=== PATIENT | male | born 1965 | race Caucasian/White ===

== ENCOUNTER 2016-10-27 21:33 | Inpatient (IN) | payer BC, OTHER ==
--- NOTE | 2016-10-27 21:50 | HP ---
[id number] Restless Observation: 3= Extraneous Movement Pupil Size: 1= Pupils >than Normal Bone or Joint Aches: 1= Mild Discomfort Runny Nose/ Eye Tearin= Runny Nose/Eyes GI Upset > 30mins: 1= Stomach Cramp Tremor Observation: 2= Slight Tremor Visible Yawning Observation: 1= 1-2x During Session Anxiety or Irritability: 2=Irritable/Anxious Goose Flesh Skin: 0=Smooth Skin COWS Score: 15 CIWA Score - CIWA Score Nausea/Vomitin Muscle Tremors: 3 Anxiety: 3 Agitation: 3 Paroxysmal Sweats: 2 Orientation: 1-Uncertain about Date Tacttile Disturbances: 0-None Auditory Disturbances: 0-None Visual Disturbances: 0-None Headache: 1-Very Mild CIWA-Ar Total Score: 15 Admission ROS S - HPI Chief Complaint: WITHDRAWAL SYMPTOMS Allergies/Adverse Reactions: Allergies Allergy/AdvReac Type Severity Reaction Status Date / Time shellfish derived AdvReac Verified 10/27/16 21:46 History of Present Illness: 51 Y.O. MAN WITH AN EXTENSIVE HISTORY OF DRUG AND ALCOHOL DEPENDENCE IS SEEKING DETOX. HE WAS PREVIOUSLY HERE IN 2013. HE STATES HE DOES NOT HAVE A SIGNIFICANT PERIOD OF SOBRIETY. Exam Limitations: No Limitations - Ebola screening Have you traveled outside of the country in the last 21 days: No Have you had contact with anyone from an Ebola affected area: No Do you have a fever: No - Review of Systems Constitutional: No Symptoms Reported EENT: reports: Tearing Respiratory: reports: Wheezing Cardiac: reports: No Symptoms Reported GI: reports: No Symptoms Reported : reports: No Symptoms Reported Musculoskeletal: reports: No Symptoms Reported Integumentary: reports: Other (TRACK ORTIZ) Neuro: reports: Tremors Endocrine: reports: No Symptoms Reported Hematology: reports: No Symptoms Reported Psychiatric: reports: Mood/Affect Appropiate, Orientated x3 Other Systems: Reviewed and Negative Patient History - Patient Medical History Hx Anemia: No Hx Asthma: Yes Hx Chronic Obstructive Pulmonary Disease (COPD): No Hx Cancer: No Hx Cardiac Disorders: No Hx Congestive Heart Failure: No Hx Hypertension: No Hx Hypercholesterolemia: No Hx Pacemaker: No HX Cerebrovascular Accident: No Hx Seizures: No Hx Dementia: No Hx Diabetes: No Hx Gastrointestinal Disorders: Yes (GERD) Hx Liver Disease: No Hx Genitourinary Disorders: No Hx Sexually Transmitted Disorders: No Hx Renal Disease (ESRD): No Hx Thyroid Disease: No Hx Human Immunodeficiency Virus (HIV): No (NEG) Hx Hepatitis C: Yes (UNTREATED ) Hx Depression: No Hx Suicide Attempt: No Hx Bipolar Disorder: No Hx Schizophrenia: No - Patient Surgical History Past Surgical History: Yes Hx Neurologic Surgery: No Hx Cataract Extraction: No Hx Cardiac Surgery: No Hx Lung Surgery: No Hx Breast Surgery: No Hx Breast Biopsy: No Hx Abdominal Surgery: No Hx Appendectomy: Yes (2013) Hx Cholecystectomy: No Hx Genitourinary Surgery: No Hx Orthopedic Surgery: No Anesthesia Reaction: No - PPD History Previous Implant?: Yes Documented Results: Negative w/o proof Implanted On Prior [facility] Admission?: No PPD to be Administered?: Yes - Reproductive History Patient is a Female of Child Bearing Age (11 -55 yrs old): No - Smoking Cessation Smoking history: Current every day smoker Have you smoked in the past 12 months: Yes Aproximately how many cigarettes per day: 20 Hx Chewing Tobacco Use: No Initiated information on smoking cessation: Yes 'Breaking Loose' booklet given: 10/27/16 - Substance & Tx. History Hx Alcohol Use: Yes Hx Substance Use: Yes Substance Use Type: Alcohol, Heroin, Tranquilizers Hx Substance Use Treatment: Yes (DETOX ) - Substances Abused Alcohol Frequency: Daily Amount used: 1.5 PINTS OF VODKA Age of first use: 15 Date of Last Use: 10/27/16 Heroin Route: Injection Frequency: Daily Amount used: 1 BUNDLE Age of first use: 19 Date of Last Use: 10/27/16 Alprazolam (Xanax) Route: Oral Frequency: Daily Amount used: 3MG Age of first use: 46 Date of Last Use: 10/27/16 Family Disease History - Family Disease History Family Disease History: Diabetes: Father, Mother, Heart Disease: Father, CA: Father, Mother, Respiratory: Father, Mother Admission Physical Exam BHS - Vital Signs Vital Signs: Last Vital Signs Temp Pulse Resp BP Pulse Ox 97.2 F L 84 16 115/91 10/27/16 22:26 10/27/16 22:26 10/27/16 22:26 10/27/16 22:26 - Physical General Appearance: Yes: Irritable, Anxious HEENTM: Yes: Normal ENT Inspection, Normocephalic, Normal Voice Respiratory: Yes: Chest Non-Tender, Lungs Clear, Normal Breath Sounds, No Respiratory Distress, No Accessory Muscle Use Neck: Yes: No masses,lesions,Nodules, Trachea in good position Breast: Yes: Breast Exam Deferred Cardiology: Yes: Regular Rhythm, Regular Rate Abdominal: Yes: Normal Bowel Sounds, Non Tender, Flat, Soft Genitourinary: Yes: Other (NO COMPLAINTS REPORTED) Back: Yes: Normal Inspection Extremities: Yes: Normal Capillary Refill, Normal Inspection, Normal Range of Motion, Non-Tender Neurological: Yes: Alert, Normal Mood/Affect, Normal Response Integumentary: Yes: Normal Color, Warm, Track Ortiz Lymphatic: Yes: Within Normal Limits - Diagnostic (1) Alcohol dependence with uncomplicated withdrawal Current Visit: Yes Status: Chronic (2) Opioid dependence with withdrawal Current Visit: Yes Status: Chronic (3) Sedative, hypnotic or anxiolytic dependence with withdrawal, uncomplicated Current Visit: Yes Status: Chronic (4) Asthma Current Visit: Yes Status: Chronic (5) GERD (gastroesophageal reflux disease) Current Visit: Yes Status: Chronic (6) Hepatitis C carrier Current Visit: Yes Status: Chronic Cleared for Admission S - Detox or Rehab [facility] Level of Care: Medically Managed Detox Regimen/Protocol: Methadone/Valium S Breath Alcohol Content Breath Alcohol Content: 0.01 Vital Signs - Vital Signs Vital Signs Refused: No Temperature: 97.2 F Temperature Source: Oral Pulse Rate: 84 Respiratory Rate: 16 Blood Pressure: 115/91 BP Location: Left Arm Blood Pressure Position: Sitting - Height Height: 5 ft 8 in - Weight Weight: 184 lb Weight Measurement Method: Standing Scale Body Mass Index (BMI): 27.9 Urine Drug Screen - Test Device Lot Number: [id number] Expiration Date: 06/27/18 - Control Is Test Valid: Yes - Results Drug Screen Negative: No Urine Drug Screen Results: ALEJANDRINA-Cocaine, OPI-Opiates, TCA-Tricyclic Antidepress
[2016-10-27] MEDS ORDERED: MAGNESIUM HYDROX 2400MG/30ML ORAL SUSPENSION 30 ML CUP PO PRN (22:02)
[2016-10-27] MEDS ORDERED: hydrOXYzine PAMOATE 50 MG CAPSULE (FP) PO PRN (22:02)
[2016-10-27] MEDS ORDERED: LOPERAMIDE HCL 2 MG CAPSULE PO PRN (22:02)
[2016-10-27] MEDS ORDERED: NICOTINE POLACRILEX 2 MG GUM BUC PRN (22:02)
[2016-10-27] MEDS ORDERED: P-EPHED 60MG/TRIPROLIDI 2.5MG TABLET PO PRN (22:02)
[2016-10-27] MEDS ORDERED: METHADONE HCL 10 MG TABLET (FOR DETOX USE ONLY) PO ONE ×2 (22:02→23:00)
[2016-10-27] MEDS ORDERED: diazePAM 5 MG TABLET PO ONE (22:02)
[2016-10-27] MEDS ORDERED: ACETAMINOPHEN 325 MG TABLET (FP) PO PRN (22:02)
[2016-10-27] MEDS ORDERED: MENTHOL/PHENOL 1 EACH UD MM PRN (22:02)
[2016-10-27] MEDS ORDERED: diphenhydrAMINE HCL 50 MG CAPSULE PO PRN (22:02)
[2016-10-27] MEDS ORDERED: MAG HYDROX/AL HYDROX/SIMETH 30 ML UNIT-DOSE CUP PO PRN (22:02)
[2016-10-27] MEDS ORDERED: IBUPROFEN 400 MG TABLET (FP) PO PRN (22:02)
[2016-10-27] MEDS ORDERED: MAGNESIUM CITRATE 300 ML BOTTLE PO PRN (22:02)
[2016-10-27] MEDS ORDERED: guaiFENesin/D-METHORPHAN HB 10 ML UNIT-DOSE CUPS PO PRN (22:02)
[2016-10-27] MEDS ORDERED: ALBUTEROL SO4 6.7 GM HFA INHALER IH PRN (22:05)
[2016-10-27 22:24] VITALS: BMI 27.9
[2016-10-27] MEDS: diazePAM 5 MG TABLET PO SCH (23:47)
[2016-10-28] MEDS: diazePAM 5 MG TABLET PO SCH ×3 (05:51→22:25)
[2016-10-28] MEDS ORDERED: METHADONE HCL 10 MG TABLET (FOR DETOX USE ONLY) PO SCH (10:00)
[2016-10-28 10:24] LABS: MCHC 34.4 g/dl (32.0-35.9); MEAN CELL VOLUME 84.3 fl (80-96); MEAN PLT VOLUME 8.7 fl (7.5-11.1); PLATELET COUNT 223 K/MM3 (134-434); RDW 13.5 % (11.9-15.9); WHITE BLOOD COUNT 7.5 K/mm3 (4.0-10.0)
[2016-10-28 10:34] LABS: ALBUMIN 3.2 g/dl (3.4-5.0); ALK PHOS 85 U/L (45-117); ANION GAP 10 (8-16); BILIRUBIN,TOTAL 0.5 mg/dL (0.2-1.0); CALCIUM 8.7 mg/dL (8.5-10.1); CO2 25 mmol/L (21-32); CREATININE 0.8 mg/dL (0.7-1.3); GLUCOSE,RANDOM 98 mg/dL (74-106); SGOT/AST 33 U/L (15-37); SGPT/ALT 57 U/L (12-78); TOT PROT 6.3 g/dl (6.4-8.2)
[2016-10-28] MEDS: RANITIDINE HCL 150 MG TABLET (FP) PO SCH (10:48)
[2016-10-28] MEDS: PRENATAL VITAMINS W/ FOLIC ACID TABLET (FP) PO SCH (10:48)
[2016-10-28] MEDS: NICOTINE 21 MG/24 HOURS TOPICAL PATCH TD SCH (10:51)
[2016-10-28] MEDS: diazePAM 5 MG TABLET PO PRN (10:51)
[2016-10-28 11:13] LABS: HIV 1 & 2 AB NEGATIVE; HIV 1 AGp24 NEGATIVE
[2016-10-28 13:12] LABS: URINE APPEARANCE CLEAR; URINE BILIRUBIN NEGATIVE (NEGATIVE); URINE BLOOD NEGATIVE (NEGATIVE); URINE COLOR YELLOW; URINE GLUCOSE (UA) NEGATIVE (NEGATIVE); URINE KETONE NEGATIVE (NEGATIVE); URINE LEUK ESTERASE NEGATIVE (NEGATIVE); URINE NITRITE NEGATIVE (NEGATIVE); URINE PROTEIN NEGATIVE (NEGATIVE); URINE UROBILINOGEN NEGATIVE E.U./dl (0.2-1.0)
--- NOTE | 2016-10-28 15:27 | PN ---
S CIWA - CIWA Score Nausea/Vomitin Muscle Tremors: 4-Moderate,w/Arms Extend Anxiety: 4-Mod. Anxious/Guarded Agitation: 2 Paroxysmal Sweats: No Perspiration Orientation: 0-Oriented Tacttile Disturbances: 0-None Auditory Disturbances: 0-None Visual Disturbances: 0-None Headache: 3-Moderate CIWA-Ar Total Score: 16 BHS COWS - Scale Resting Pulse: 0= [place] 80 or Below Sweatin= Chills/Flushing Restless Observation: 3= Extraneous Movement Pupil Size: 0= Normal to Room Light Bone or Joint Aches: 2= Severe Diffuse Aches Runny Nose/ Eye Tearin= Runny Nose/Eyes GI Upset > 30mins: 3= Vomiting/Diarrhea Tremor Observation of Outstretched Hands: 2= Slight Tremor Visible Yawning Observation: 0= None Anxiety or Irritability: 2=Irritable/Anxious Goose Flesh Skin: 0=Smooth Skin COWS Score: 15 S Progress Note (SOAP) Subjective: Nausea, diarrhea, anxious, sweating, tremor Objective: 10/28/16 15:26 Last Vital Signs Temp Pulse Resp BP Pulse Ox 96.0 F L 73 18 129/83 10/28/16 13:49 10/28/16 13:49 10/28/16 13:49 10/28/16 13:49 Laboratory Tests 10/28/16 10/28/16 10/28/16 07:45 07:45 07:45 WBC 7.5 RBC 4.74 Hgb 13.7 Hct 39.9 MCV 84.3 MCHC 34.4 RDW 13.5 Plt Count 223 MPV 8.7 Sodium 139 Potassium 3.8 Chloride 104 Carbon Dioxide 25 Anion Gap 10 BUN 17 Creatinine 0.8 Creat Clearance w eGFR > 60 Random Glucose 98 Calcium 8.7 Total Bilirubin 0.5 AST 33 ALT 57 Alkaline Phosphatase 85 Total Protein 6.3 L Albumin 3.2 L Urine Color Urine Appearance Urine pH Ur Specific [place] Urine Protein Urine Glucose (UA) Urine Ketones Urine Blood Urine Nitrite Urine Bilirubin Urine Urobilinogen Ur Leukocyte Esterase RPR Titer Nonreactive HIV 1&2 Antibody Screen HIV P24 Antigen 10/28/16 10/28/16 07:45 12:08 WBC RBC Hgb Hct MCV MCHC RDW Plt Count MPV Sodium Potassium Chloride Carbon Dioxide Anion Gap BUN Creatinine Creat Clearance w eGFR Random Glucose Calcium Total Bilirubin AST ALT Alkaline Phosphatase Total Protein Albumin Urine Color Yellow Urine Appearance Clear Urine pH 5.0 Ur Specific [place] 1.025 Urine Protein Negative Urine Glucose (UA) Negative Urine Ketones Negative Urine Blood Negative Urine Nitrite Negative Urine Bilirubin Negative Urine Urobilinogen Negative Ur Leukocyte Esterase Negative RPR Titer HIV 1&2 Antibody Screen Negative HIV P24 Antigen Negative Labs noted Assessment: 10/28/16 15:27 Withdrawal symptoms Plan: Continue detox
[2016-10-28] MEDS ORDERED: THIAMINE HCL 100 MG TABLET (FP) PO SCH (22:00)
[2016-10-29] MEDS: diazePAM 5 MG TABLET PO PRN (05:50)
[2016-10-29 09:48] VITALS: BP 133/95; PULSE 81; TEMP 96
[2016-10-29] MEDS ORDERED: METHADONE HCL 5 MG TABLET (FOR DETOX USE ONLY) PO SCH (10:00)
[2016-10-29] MEDS ORDERED: diazePAM 5 MG TABLET PO SCH (10:00)
[2016-10-29] MEDS: PRENATAL VITAMINS W/ FOLIC ACID TABLET (FP) PO SCH (10:39)
[2016-10-29] MEDS: RANITIDINE HCL 150 MG TABLET (FP) PO SCH (10:39)
[2016-10-29] MEDS: NICOTINE 21 MG/24 HOURS TOPICAL PATCH TD SCH (10:40)
--- NOTE | 2016-10-29 11:40 | PN ---
[facility] CIWA - CIWA Score Nausea/Vomitin-No Nausea/No Vomiting Muscle Tremors: 3 Anxiety: 4-Mod. Anxious/Guarded Agitation: 4-Moderately Restless Paroxysmal Sweats: 3 Orientation: 0-Oriented Tacttile Disturbances: 0-None Auditory Disturbances: 0-None Visual Disturbances: 0-None Headache: 0-None Present CIWA-Ar Total Score: 14 S COWS - Scale Resting Pulse: 1= ND 81-100 Sweatin=Flushed/Facial Moisture Restless Observation: 1= Difficult to Sit Still Pupil Size: 0= Normal to Room Light Bone or Joint Aches: 1= Mild Discomfort Runny Nose/ Eye Tearin= Runny Nose/Eyes GI Upset > 30mins: 2= Nausea/Diarrhea Tremor Observation of Outstretched Hands: 2= Slight Tremor Visible Yawning Observation: 1= 1-2x During Session Anxiety or Irritability: 2=Irritable/Anxious Goose Flesh Skin: 0=Smooth Skin COWS Score: 14 S Progress Note (SOAP) Subjective: Anxiety,tremors,sweating,interrupted sleep,restless Objective: 10/29/16 11:39 Vital Signs - 8 hr 10/29/16 10/29/16 10/29/16 03:46 06:28 07:46 Temperature 96.1 F L Pulse Rate 73 97 H Respiratory 18 18 Rate Blood Pressure 167/94 154/97 10/29/16 09:47 Temperature 96 F L Pulse Rate 81 Respiratory 20 Rate Blood Pressure 133/95 Laboratory Last Values WBC 7.5 K/mm3 (4.0-10.0) 10/28/16 07:45 RBC 4.74 M/mm3 (4.00-5.60) 10/28/16 07:45 Hgb 13.7 GM/dL (11.7-16.9) 10/28/16 07:45 Hct 39.9 % (35.4-49) 10/28/16 07:45 MCV 84.3 fl (80-96) 10/28/16 07:45 MCHC 34.4 g/dl (32.0-35.9) 10/28/16 07:45 RDW 13.5 % (11.9-15.9) 10/28/16 07:45 Plt Count 223 K/MM3 (134-434) 10/28/16 07:45 MPV 8.7 fl (7.5-11.1) 10/28/16 07:45 Sodium 139 mmol/L (136-145) 10/28/16 07:45 Potassium 3.8 mmol/L (3.5-5.1) 10/28/16 07:45 Chloride 104 mmol/L (98-107) 10/28/16 07:45 Carbon Dioxide 25 mmol/L (21-32) 10/28/16 07:45 Anion Gap 10 (8-16) 10/28/16 07:45 BUN 17 mg/dL (7-18) 10/28/16 07:45 Creatinine 0.8 mg/dL (0.7-1.3) 10/28/16 07:45 Creat Clearance w eGFR > 60 (>60) 10/28/16 07:45 Random Glucose 98 mg/dL (74-106) 10/28/16 07:45 Calcium 8.7 mg/dL (8.5-10.1) 10/28/16 07:45 Total Bilirubin 0.5 mg/dL (0.2-1.0) 10/28/16 07:45 AST 33 U/L (15-37) 10/28/16 07:45 ALT 57 U/L (12-78) 10/28/16 07:45 Alkaline Phosphatase 85 U/L (45-117) 10/28/16 07:45 Total Protein 6.3 g/dl (6.4-8.2) L 10/28/16 07:45 Albumin 3.2 g/dl (3.4-5.0) L 10/28/16 07:45 Urine Color Yellow 10/28/16 12:08 Urine Appearance Clear 10/28/16 12:08 Urine pH 5.0 (5.0-8.0) 10/28/16 12:08 Ur Specific [place] 1.025 (1.001-1.035) 10/28/16 12:08 Urine Protein Negative (NEGATIVE) 10/28/16 12:08 Urine Glucose (UA) Negative (NEGATIVE) 10/28/16 12:08 Urine Ketones Negative (NEGATIVE) 10/28/16 12:08 Urine Blood Negative (NEGATIVE) 10/28/16 12:08 Urine Nitrite Negative (NEGATIVE) 10/28/16 12:08 Urine Bilirubin Negative (NEGATIVE) 10/28/16 12:08 Urine Urobilinogen Negative E.U./dl (0.2-1.0) 10/28/16 12:08 Ur Leukocyte Esterase Negative (NEGATIVE) 10/28/16 12:08 RPR Titer Nonreactive (NONREACTIVE) 10/28/16 07:45 HIV 1&2 Antibody Screen Negative 10/28/16 07:45 HIV P24 Antigen Negative 10/28/16 07:45 labs note Assessment: 10/29/16 11:39 Withdrawal sx. Plan: Continue detox
--- NOTE | 2016-10-30 08:51 | DS ---
[facility] Detox Discharge Summary Admission Date: 10/27/16 Discharge Date: 10/29/16 - History Present History: Alcohol Dependence, Opioid Dependence, Sedative Dependence Pertinent Past History: Asthma Hep C GERD - Physical Exam Results Vital Signs: Vital Signs Temperature 96 F L 10/29/16 09:47 Pulse Rate 81 10/29/16 09:47 Respiratory Rate 20 10/29/16 09:47 Blood Pressure 133/95 10/29/16 09:47 O2 Sat by Pulse Oximetry (%) Pertinent Admission Physical Exam Findings: Withdrawal sx. Laboratory Last Values WBC 7.5 K/mm3 (4.0-10.0) 10/28/16 07:45 RBC 4.74 M/mm3 (4.00-5.60) 10/28/16 07:45 Hgb 13.7 GM/dL (11.7-16.9) 10/28/16 07:45 Hct 39.9 % (35.4-49) 10/28/16 07:45 MCV 84.3 fl (80-96) 10/28/16 07:45 MCHC 34.4 g/dl (32.0-35.9) 10/28/16 07:45 RDW 13.5 % (11.9-15.9) 10/28/16 07:45 Plt Count 223 K/MM3 (134-434) 10/28/16 07:45 MPV 8.7 fl (7.5-11.1) 10/28/16 07:45 Sodium 139 mmol/L (136-145) 10/28/16 07:45 Potassium 3.8 mmol/L (3.5-5.1) 10/28/16 07:45 Chloride 104 mmol/L (98-107) 10/28/16 07:45 Carbon Dioxide 25 mmol/L (21-32) 10/28/16 07:45 Anion Gap 10 (8-16) 10/28/16 07:45 BUN 17 mg/dL (7-18) 10/28/16 07:45 Creatinine 0.8 mg/dL (0.7-1.3) 10/28/16 07:45 Creat Clearance w eGFR > 60 (>60) 10/28/16 07:45 Random Glucose 98 mg/dL (74-106) 10/28/16 07:45 Calcium 8.7 mg/dL (8.5-10.1) 10/28/16 07:45 Total Bilirubin 0.5 mg/dL (0.2-1.0) 10/28/16 07:45 AST 33 U/L (15-37) 10/28/16 07:45 ALT 57 U/L (12-78) 10/28/16 07:45 Alkaline Phosphatase 85 U/L (45-117) 10/28/16 07:45 Total Protein 6.3 g/dl (6.4-8.2) L 10/28/16 07:45 Albumin 3.2 g/dl (3.4-5.0) L 10/28/16 07:45 Urine Color Yellow 10/28/16 12:08 Urine Appearance Clear 10/28/16 12:08 Urine pH 5.0 (5.0-8.0) 10/28/16 12:08 Ur Specific [place] 1.025 (1.001-1.035) 10/28/16 12:08 Urine Protein Negative (NEGATIVE) 10/28/16 12:08 Urine Glucose (UA) Negative (NEGATIVE) 10/28/16 12:08 Urine Ketones Negative (NEGATIVE) 10/28/16 12:08 Urine Blood Negative (NEGATIVE) 10/28/16 12:08 Urine Nitrite Negative (NEGATIVE) 10/28/16 12:08 Urine Bilirubin Negative (NEGATIVE) 10/28/16 12:08 Urine Urobilinogen Negative E.U./dl (0.2-1.0) 10/28/16 12:08 Ur Leukocyte Esterase Negative (NEGATIVE) 10/28/16 12:08 RPR Titer Nonreactive (NONREACTIVE) 10/28/16 07:45 HIV 1&2 Antibody Screen Negative 10/28/16 07:45 HIV P24 Antigen Negative 10/28/16 07:45 labs noted - Treatment Patient has Accepted a Rehab Referral to: [facility] - Medication Discharge Medications: Ambulatory Orders Albuterol Sulfate Inhaler - [Ventolin Hfa Inhaler -] 2 inh PO Q4H PRN 10/28/16 Lansoprazole [Prevacid -] 30 mg PO DAILY 10/28/16 - Diagnosis (1) Alcohol dependence with uncomplicated withdrawal Status: Acute (2) Asthma Status: Chronic (3) GERD (gastroesophageal reflux disease) Status: Chronic Qualifiers: Esophagitis presence: without esophagitis Qualified Code(s): K21.9 - Gastro-esophageal reflux disease without esophagitis (4) Hepatitis C carrier Status: Chronic (5) Opioid dependence with withdrawal Status: Acute (6) Sedative, hypnotic or anxiolytic dependence with withdrawal, uncomplicated Status: Acute - AMA Did Patient Leave Against Medical Advice: Yes
--- NOTE | 2016-10-30 22:57 | EKG ---
Test Reason : Blood Pressure : / mmHG Vent. Rate : 083 BPM Atrial Rate : 083 BPM P-R Int : 142 ms QRS Dur : 096 ms QT Int : 368 ms P-R-T Axes : 062 069 060 degrees QTc Int : 432 ms NORMAL SINUS RHYTHM NORMAL ECG NO PREVIOUS ECGS AVAILABLE Confirmed by GREER DE LA GARZA MD ([id number]) on 10/30/2016 10:56:50 PM Referred By: Confirmed By:GREER DE LA GARZA MD
[2016-10-31] MEDS ORDERED: METHADONE HCL 10 MG TABLET (FOR DETOX USE ONLY) PO SCH (10:00)
[2016-10-31] MEDS ORDERED: diazePAM 5 MG TABLET PO SCH (10:00)
[2016-11-01] MEDS ORDERED: METHADONE HCL 5 MG TABLET (FOR DETOX USE ONLY) PO SCH (06:00)
== END 2016-10-29 12:25 | disposition left against medical advice (07) | DRG 770 ==
LOC: YASAS 21:33 → Y3N 21:35
PROVIDERS: ADMIT Internal Medicine; ATTEND Internal Medicine
PROC: HZ2ZZZZ Detoxification Services for Substance Abuse Treatment (ICD-10-PCS; principal; 2016-10-27)
DX: F11.23 Opioid dependence with withdrawal (principal); F13.230 Sedative, hypnotic or anxiolytic dependence with withdrawal, uncomplicated; F10.230 Alcohol dependence with withdrawal, uncomplicated; F17.210 Nicotine dependence, cigarettes, uncomplicated; J45.909 Unspecified asthma, uncomplicated; K21.9 Gastro-esophageal reflux disease without esophagitis; B18.2 Chronic viral hepatitis C
CPT/HCPCS: 36415; 80053; 81003; 85027; 86593; 87389; 93005; 93010